=== PATIENT | female | born 1965 | race Caucasian/White ===

== ENCOUNTER 2020-01-08 04:57 | Day surgery (SDC) | payer BC ==
[2020-01-07 16:28] VITALS: BMI 28.3
[~2020-01-08 04:57] MED LIST: ACETAMINOPHEN 325 MG TABLET (FP) PO PRN; BSS (NA/CA/MG/K) BALANCED SALT SOLUTION OPHTH SOLN 15 ML BOTTLE OD ONE; CHONDROITIN SU A/HYALUR SOD 1 KIT IO ONE; EPINEPHrine/PF 1 MG/1 ML (1:1,000) AMPULE SQ ONE; LIDOCAINE HCL 1% PRESERVATIVE FREE - 30ML VIAL IO ONE; POVIDONE-IODINE 5% OPHTHALMIC PREP 30 ML SOLUTION OD ONE; TETRACAINE 0.5% OPHTH SOLN 2 ML BOTTLE OD ONE
[2020-01-08] MEDS ORDERED: TROPICAMIDE 1% OPHTH SOLN 15 ML BOTTLE ONE (06:22)
[2020-01-08] MEDS ORDERED: OFLOXACIN 0.3% OPHTHALMIC SOLUTION 5 ML BOTTLE ONE (06:22)
[2020-01-08] MEDS ORDERED: KETOROLAC TROMETHAMINE 0.5% EYE DROP 1 DROP DROPS ONE (06:23)
[2020-01-08] MEDS ORDERED: CYCLOPENTOLATE HCL 1% OPHTH SOLN 2 ML BOTTLE ONE (06:23)
[2020-01-08] MEDS: PHENYLEPHRINE 2.5% OPHTH SOLN 15 ML BOTTLE OP SCH ×3 (06:35→06:50)
[2020-01-08] MEDS: OFLOXACIN 0.3% OPHTHALMIC SOLUTION 5 ML BOTTLE OP SCH ×2 (06:35→06:45)
[2020-01-08] MEDS: KETOROLAC TROMETHAMINE 0.5% EYE DROP 1 DROP DROPS OP SCH ×3 (06:35→06:50)
[2020-01-08] MEDS: TROPICAMIDE 1% OPHTH SOLN 15 ML BOTTLE OP SCH ×3 (06:35→06:50)
[2020-01-08] MEDS: CYCLOPENTOLATE HCL 1% OPHTH SOLN 2 ML BOTTLE OP SCH ×3 (06:35→06:50)
[2020-01-08] MEDS ORDERED: VANCOMYCIN 500 MG VIAL (RESTRICTED TO ID ONLY) ONE (07:11)
[2020-01-08] MEDS ORDERED: LIDOCAINE HCL/PF 1% SDV 5ML VIAL ONE (07:11)
[2020-01-08] MEDS ORDERED: EPINEPHrine/PF 1 MG/1 ML (1:1,000) AMPULE ONE (07:11)
[2020-01-08] MEDS ORDERED: POVIDONE-IODINE 5% OPHTHALMIC PREP 30 ML SOLUTION ONE (07:12)
[2020-01-08] MEDS ORDERED: TETRACAINE 0.5% OPHTH SOLN 2 ML BOTTLE ONE (07:12)
[2020-01-08] MEDS ORDERED: TRYPAN BLUE 0.5 ML DISP.SYRIN ONE (07:12)
[2020-01-08] MEDS ORDERED: WATER FOR INJ,STERILE 10 ML ONE (07:12)
[2020-01-08] MEDS ORDERED: ACETYLCHOLINE 1:100 INTRA-OCUL 20 MG/2 ML KIT ONE (07:12)
[2020-01-08] MEDS ORDERED: MIDAZOLAM HCL 2 MG/2 ML SINGLE DOSE VIAL ONE (07:51)
[2020-01-08] MEDS ORDERED: TETRACAINE 0.5% OPHTH SOLN 2 ML BOTTLE OD ONE (08:03)
[2020-01-08] MEDS ORDERED: POVIDONE-IODINE 5% OPHTHALMIC PREP 30 ML SOLUTION OD ONE (08:06)
[2020-01-08] MEDS ORDERED: BSS (NA/CA/MG/K) BALANCED SALT SOLUTION OPHTH SOLN 15 ML BOTTLE OD ONE (08:14)
[2020-01-08] MEDS ORDERED: LIDOCAINE HCL 1% PRESERVATIVE FREE - 30ML VIAL IO ONE (08:14)
[2020-01-08] MEDS ORDERED: CHONDROITIN SU A/HYALUR SOD 1 KIT IO ONE (08:14)
[2020-01-08] MEDS ORDERED: EPINEPHrine/PF 1 MG/1 ML (1:1,000) AMPULE SQ ONE (08:24)
[2020-01-08 09:03] VITALS: TEMP 96.5
[2020-01-08 09:33] VITALS: BP 107/75; PULSE 63
== END 2020-01-08 09:35 | disposition home or self-care (01) ==
LOC: JASU-SURG 04:57
PROVIDERS: ATTEND Ophthalmology
PROC: 08RJ3JZ Replacement of Right Lens with Synthetic Substitute, Percutaneous Approach (ICD-10-PCS; principal; 2020-01-08 08:00)
DX: H26.9 Unspecified cataract (principal)

== ENCOUNTER 2022-02-09 09:26 | Emergency (ER) | payer BC ==
[2022-02-09 09:35] VITALS: BP 123/102; PULSE 78; RESP 18; TEMP 98; BMI 20.2
== END 2022-02-09 12:03 | disposition home or self-care (01) ==
LOC: JER 09:26
DX: R05.1 Acute cough (principal); R09.81 Nasal congestion; J02.9 Acute pharyngitis, unspecified; J06.9 Acute upper respiratory infection, unspecified
CPT/HCPCS: 0241U-QW; 71046-TC-FY; 99284-25